=== PATIENT | female | born 1990 | race Caucasian/White ===

== ENCOUNTER 2018-07-02 20:28 | Emergency (ER) | payer OTHER ==
[2018-07-02 20:33] VITALS: RESP 18
[2018-07-02] MEDS ORDERED: ONDANSETRON 4 MG/2 ML VIAL IVP STA (21:52)
[2018-07-02] MEDS ORDERED: SODIUM CHLORIDE 0.9% 1,000 ML IV STA (21:52)
[2018-07-02 22:40] LABS: Basophils # (A) 0.1 k/uL (0-0.2); Basophils % (A) 1 %; Eosinophils # (A) 0.6 k/uL (0-0.7); Eosinophils % (A) 4 %; HCT 47.6 % (34.0-46.0); HGB 16.4 gm/dL (11.4-16.0); Lymphocytes # (A) 4.2 k/uL (1.0-4.8); Lymphocytes % (A) 31 %; MCH 29.4 pg (25.0-35.0); MCHC 34.4 g/dL (31.0-37.0); MCV 85.4 fL (80.0-100.0); Mean Platelet Volume 7.5; Monocytes # (A) 0.7 k/uL (0-1.0); Monocytes % (A) 5 %; Neutrophils % (A) 58 %; Platelet Count 275 k/uL (150-450); RBC 5.57 m/uL (3.80-5.40); RDW 12.8 % (11.5-15.5); WBC 13.8 k/uL (3.8-10.6)
[2018-07-02 22:45] LABS: Appearance,Urine Cloudy (Clear); Bacteria,Urine Many /hpf; Bilirubin,Urine Negative (Negative); Blood,Urine Small (Negative); Color,Urine Dark Yellow; Glucose,Urine (UA) Negative (Negative); Ketones,Urine 1+ (Negative); Leukocyte Esterase,Urine Large (Negative); Mucus,Urine Many /hpf; Nitrite,Urine Positive (Negative); PH, Urine 5.5 (5.0-8.0); Protein,Urine 2+ (Negative); Specific Gravity,Urine 1.031 (1.001-1.035); Squamous Epithelial Cell,Urine 24 /hpf (0-4); WBC,Urine 47 /hpf (0-5)
[2018-07-02 22:49] LABS: ALT 53 U/L (9-52); AST 29 U/L (14-36); Albumin 4.2 g/dL (3.5-5.0); Alkaline Phosphatase 74 U/L (38-126); Amylase 38 U/L (30-110); Anion Gap 12 mmol/L; Blood Urea Nitrogen 12 mg/dL (7-17); Calcium 9.9 mg/dL (8.4-10.2); Carbon Dioxide 25 mmol/L (22-30); Chloride 102 mmol/L (98-107); Glucose 87 mg/dL (74-99); Lipase 55 U/L (23-300); Potassium 4.1 mmol/L (3.5-5.1); Sodium 139 mmol/L (137-145); Total Bilirubin 0.6 mg/dL (0.2-1.3); Total Protein 7.2 g/dL (6.3-8.2)
[2018-07-02] MEDS ORDERED: cefTRIAXone IN SWFI 1,000 MG/10 ML SYRINGE IVP STA (22:55)
--- NOTE | 2018-07-02 23:08 | XR ---
EXAMINATION TYPE: XR abdomen 2V DATE OF EXAM: 07/02/2018 COMPARISON: NONE HISTORY: Nausea and vomiting TECHNIQUE: 3 views FINDINGS: There is no sign of intestinal obstruction or pneumoperitoneum. Fecal pattern is normal. Xena ng bases are clear. There are no pathologic calcifications over the kidneys. IMPRESSION: Nonacute abdomen.
--- NOTE | 2018-07-02 23:14 | ED ---
General Adult HPI - General Source: patient Mode of arrival: ambulatory Limitations: no limitations <Julian Erwin - Last Filed: 07/03/18 00:28> <Jody Miranda P - Last Filed: 07/04/18 06:48> - General Chief complaint: Nausea/Vomiting/Diarrhea Stated complaint: dehydration Time Seen by Provider: 07/02/18 21:25 - History of Present Illness Initial comments: 27-year-old female presents to the emergency department for a chief complaint of nausea vomiting and diarrhea 2 days. Patient states she has vomited multiple times, mostly after she eats. She states she is nauseous throughout the day. Patient has also had multiple bouts of diarrhea. Patient denies any abdominal pain. 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 Patient denies any other abdominal surgeries. Patient denies any chance of . Patient denies any lower abdominal pain, vaginal discharge.Patient has no other complaints at this time including shortness of breath, chest pain, abdominal pain, nausea or vomiting, headache, or visual changes. (Julian Erwin) - Related Data Home Medications Medication Instructions Recorded Confirmed Escitalopram [Lexapro] 10 mg PO DAILY 07/02/18 07/02/18 Escitalopram [Lexapro] 20 mg PO DAILY 07/02/18 07/02/18 Nascobal 500mcg Nasal [place] 1 spray NASAL FR 07/02/18 07/02/18 buPROPion HCL [Wellbutrin SR] 150 mg PO BID 07/02/18 07/02/18 Previous Rx's Medication Instructions Recorded Cephalexin [Keflex] 500 mg PO Q6H 10 Days cap 07/03/18 Ondansetron [Zofran ODT] 4 mg PO Q8HR PRN #15 tab 07/03/18 Allergies Allergy/AdvReac Type Severity Reaction Status Date / Time No Known Allergies Allergy Verified 07/02/18 22:55 Review of Systems ROS Other: All systems not noted in ROS Statement are negative. <Julian Erwin - Last Filed: 07/03/18 00:28> ROS Other: All systems not noted in ROS Statement are negative. <Jody Miranda P - Last Filed: 07/04/18 06:48> ROS Statement: Those systems with pertinent positive or pertinent negative responses have been documented in the HPI. Past Medical History Past Medical History: No Reported History History of Any Multi-Drug Resistant Organisms: None Reported Past Surgical History: Bariatric Surgery, Orthopedic Surgery, Tonsillectomy Past Psychological History: Anxiety, Depression Smoking Status: Current every day smoker Past Alcohol Use History: None Reported Past Drug Use History: None Reported <Julian Erwin P - Last Filed: 07/03/18 00:28> General Exam Limitations: no limitations General appearance: alert, in no apparent distress Head exam: Present: atraumatic, normocephalic, normal inspection Eye exam: Present: normal appearance. Absent: scleral icterus, conjunctival injection ENT exam: Present: normal exam, mucous membranes moist Neck exam: Present: normal inspection, full ROM. Absent: tenderness, meningismus, lymphadenopathy Respiratory exam: Present: normal lung sounds bilaterally. Absent: respiratory distress, wheezes, rales, rhonchi, stridor Cardiovascular Exam: Present: regular rate, normal rhythm, normal heart sounds. Absent: systolic murmur, diastolic murmur, rubs, gallop, clicks GI/Abdominal exam: Present: soft, tenderness (mild RUQ and epigastric tenderness , negative angela sign.), normal bowel sounds. Absent: distended, guarding, rebound, rigid Neurological exam: Present: alert, oriented X3, CN II-XII intact Psychiatric exam: Present: normal affect, normal mood <Julian Erwin P - Last Filed: 07/03/18 00:28> Vital Signs 07/02/18 07/03/18 20:29 01:19 Temperature 98.4 F 98.7 F Pulse Rate 92 87 Respiratory 18 18 Rate Blood Pressure 126/67 163/99 O2 Sat by Pulse 98 98 Oximetry Medical Decision Making - Lab Data Result diagrams: 07/02/18 22:28 07/02/18 22:28 <Julian Erwin P - Last Filed: 07/03/18 00:28> - Lab Data Result diagrams: 07/02/18 22:28 07/02/18 22:28 <Jdoy Miranda P - Last Filed: 07/04/18 06:48> - Medical Decision Making 27-year-old female since to the emergency department for a chief complaint of nausea vomiting and diarrhea 2 days. Patient has a history of gastric sleeve 6 months ago and is a bariatric patient. Patient has a pulse rate of 92, afebrile. CBC shows a white count of 13.8. Otherwise unremarkable. CMP unremarkable. Plasma lactic acid 1.1. Blood cultures ordered as patient met SIRS criteria. Urinalysis shows positive nitrite with large leukocyte esterase and 47 white blood cells. Urine was cultured and patient was given a gram of Rocephin. X-ray shows no sign of intestinal obstruction. Fecal pattern is normal. Nonacute abdomen. No CVA tenderness or back pain, no evidence of pyelonoephritis. At this time patient is likely experiencing symptoms of gastroenteritis as she has vomiting and diarrhea along with a urinary tract infection. She will be treated with Keflex. She is to follow up with primary care in 1-2 days. Patient is to return to the emergency Department if she has any worsening symptoms. (Julian Erwin) I was available for consultation in the emergency department. The history and physical exam were done by the midlevel provider. I was consulted for this patient's care. I reviewed the case with the midlevel provider and based on their presentation of the patient, I agree with the assessment, medical decision making and plan of care as documented. (Jody Miranda) - Lab Data Lab Results 07/02/18 07/02/18 07/02/18 Range/Units 22:28 22:28 22:30 WBC 13.8 H (3.8-10.6) k/uL RBC 5.57 H (3.80-5.40) m/uL Hgb 16.4 H (11.4-16.0) gm/dL Hct 47.6 H (34.0-46.0) % MCV 85.4 (80.0-100.0) fL MCH 29.4 (25.0-35.0) pg MCHC 34.4 (31.0-37.0) g/dL RDW 12.8 (11.5-15.5) % Plt Count 275 (150-450) k/uL Neutrophils % 58 % Lymphocytes % 31 % Monocytes % 5 % Eosinophils % 4 % Basophils % 1 % Neutrophils # 8.0 H (1.3-7.7) k/uL Lymphocytes # 4.2 (1.0-4.8) k/uL Monocytes # 0.7 (0-1.0) k/uL Eosinophils # 0.6 (0-0.7) k/uL Basophils # 0.1 (0-0.2) k/uL Sodium 139 (137-145) mmol/L Potassium 4.1 (3.5-5.1) mmol/L Chloride 102 (98-107) mmol/L Carbon Dioxide 25 (22-30) mmol/L Anion Gap 12 mmol/L BUN 12 (7-17) mg/dL Creatinine 0.70 (0.52-1.04) mg/dL Est GFR (CKD-EPI)AfAm >90 (>60 ml/min/1.73 sqM) Est GFR (CKD-EPI)NonAf >90 (>60 ml/min/1.73 sqM) Glucose 87 (74-99) mg/dL Plasma Lactic Acid Louis (0.7-2.0) mmol/L Calcium 9.9 (8.4-10.2) mg/dL Total Bilirubin 0.6 (0.2-1.3) mg/dL AST 29 (14-36) U/L ALT 53 H (9-52) U/L Alkaline Phosphatase 74 (38-126) U/L Total Protein 7.2 (6.3-8.2) g/dL Albumin 4.2 (3.5-5.0) g/dL Amylase 38 (30-110) U/L Lipase 55 (23-300) U/L Urine Color Urine Appearance (Clear) Urine pH (5.0-8.0) Ur Specific [place] (1.001-1.035) Urine Protein (Negative) Urine Glucose (UA) (Negative) Urine Ketones (Negative) Urine Blood (Negative) Urine Nitrite (Negative) Urine Bilirubin (Negative) Urine Urobilinogen (<2.0) mg/dL Ur Leukocyte Esterase (Negative) Urine WBC (0-5) /hpf Ur Squamous Epith Cells (0-4) /hpf Urine Bacteria (None) /hpf Urine Mucus (None) /hpf Urine HCG, Qual Not Detected (Not Detectd) 07/02/18 07/02/18 Range/Units 22:30 23:22 WBC (3.8-10.6) k/uL RBC (3.80-5.40) m/uL Hgb (11.4-16.0) gm/dL Hct (34.0-46.0) % MCV (80.0-100.0) fL MCH (25.0-35.0) pg MCHC (31.0-37.0) g/dL RDW (11.5-15.5) % Plt Count (150-450) k/uL Neutrophils % % Lymphocytes % % Monocytes % % Eosinophils % % Basophils % % Neutrophils # (1.3-7.7) k/uL Lymphocytes # (1.0-4.8) k/uL Monocytes # (0-1.0) k/uL Eosinophils # (0-0.7) k/uL Basophils # (0-0.2) k/uL Sodium (137-145) mmol/L Potassium (3.5-5.1) mmol/L Chloride (98-107) mmol/L Carbon Dioxide (22-30) mmol/L Anion Gap mmol/L BUN (7-17) mg/dL Creatinine (0.52-1.04) mg/dL Est GFR (CKD-EPI)AfAm (>60 ml/min/1.73 sqM) Est GFR (CKD-EPI)NonAf (>60 ml/min/1.73 sqM) Glucose (74-99) mg/dL Plasma Lactic Acid Louis 1.1 (0.7-2.0) mmol/L Calcium (8.4-10.2) mg/dL Total Bilirubin (0.2-1.3) mg/dL AST (14-36) U/L ALT (9-52) U/L Alkaline Phosphatase (38-126) U/L Total Protein (6.3-8.2) g/dL Albumin (3.5-5.0) g/dL Amylase (30-110) U/L Lipase (23-300) U/L Urine Color Dark Yellow Urine Appearance Cloudy H (Clear) Urine pH 5.5 (5.0-8.0) Ur Specific [place] 1.031 (1.001-1.035) Urine Protein 2+ H (Negative) Urine Glucose (UA) Negative (Negative) Urine Ketones 1+ H (Negative) Urine Blood Small H (Negative) Urine Nitrite Positive H (Negative) Urine Bilirubin Negative (Negative) Urine Urobilinogen 2.0 (<2.0) mg/dL Ur Leukocyte Esterase Large H (Negative) Urine WBC 47 H (0-5) /hpf Ur Squamous Epith Cells 24 H (0-4) /hpf Urine Bacteria Many H (None) /hpf Urine Mucus Many H (None) /hpf Urine HCG, Qual (Not Detectd) Disposition Is patient prescribed a controlled substance at d/c from ED?: No Time of Disposition: 00:35 <Julian Erwin - Last Filed: 07/03/18 00:28> <Jody Miranda - Last Filed: 07/04/18 06:48> Clinical Impression: Gastroenteritis Disposition: HOME SELF-CARE Condition: Good Instructions: Urinary Tract Infection in Women (ED), Acute Nausea and Vomiting (ED) Additional Instructions: Please take antibiotic for urinary tract infection. Please take Zofran for nausea. Please follow-up with primary care in 1-2 days. Return to the emergency department if you have any worsening symptoms. Prescriptions: Cephalexin [Keflex] 500 mg PO Q6H 10 Days cap Ondansetron [Zofran ODT] 4 mg PO Q8HR PRN #15 tab PRN Reason: Nausea Referrals: Nonstaff,Physician [Primary Care Provider] - 1-2 days Addendum entered and electronically signed by Julian Erwin PA-C 07/03/18 17 :09: Patient was also diagnosed with UTI. Patient had a normal HIDA scan this year.
[2018-07-03] MEDS ORDERED: CEPHALEXIN 500MG STARTER PACK 4 CAP BTL PO STA (00:57)
[2018-07-03 01:20] VITALS: BP 163/99; PULSE 87; TEMP 98.7
== END 2018-07-03 01:20 | disposition home or self-care (01) ==
LOC: EC 20:28
DX: K52.9 Noninfective gastroenteritis and colitis, unspecified (principal); N39.0 Urinary tract infection, site not specified; F41.9 Anxiety disorder, unspecified; F32.9 Major depressive disorder, single episode, unspecified; F17.200 Nicotine dependence, unspecified, uncomplicated; Z98.84 Bariatric surgery status; Z98.890 Other specified postprocedural states; Z79.899 Other long term (current) drug therapy
CPT/HCPCS: 36415; 80053; 82150; 83605; 83690; 85025; 81001; 81025; 87040; 87086; 74019; 99284; 96374; 96375; 96361; J2405; J0696; 87077; 87186